=== PATIENT | male | born 2000 | race African-American/Black ===

== ENCOUNTER 2021-05-25 14:17 | Emergency (ER) | payer SELFPAY ==
[2021-05-25 14:41] LABS: Urine Blood Negative (Negative); Urine Glucose Negative (Negative); Urine Protein Negative (Negative); Urine pH 6.5 (5.0-7.0)
[2021-05-25 15:01] LABS: Urine Bacteria <20 /HPF (NONE SEEN); Urine Mucus LIGHT /HPF (NONE SEEN); Urine RBC <5 /HPF (NONE SEEN)
--- NOTE | 2021-05-25 15:06 | EDPHYS ---
Physician Documentation [facility] Name: Tramaine Mckeon Jr Age: 20 yrs Sex: Male : 2000 Arrival Date: 05/25/2021 Time: 14:21 Bed 11 Private MD: ED Physician Moose Arce HPI: 05/25 14:46 This 20 yrs old Black Male presents to ER via Ambulatory with complaints of STD kb Exposure. 14:46 The patient presents with a known STD exposure, with a history of engaging in sex with kb a single partner, did not use protection, the patient has no apparent symptoms. Onset: The symptoms/episode began/occurred today. Modifying factors: The symptoms are alleviated by nothing, the symptoms are aggravated by nothing. Associated signs and symptoms: The patient has no apparent associated signs or symptoms. Severity of symptoms: At their worst the symptoms were very mild, in the emergency department the symptoms are unchanged. The patient has not experienced similar symptoms in the past. The patient has not recently seen a physician. Pt states he had unprotected sex and the partner just tested positive for trichomoniasis. . Historical: - Allergies: 14:32 PENICILLINS; ll1 - PMHx: 14:32 Asthma; ll1 - PSHx: 14:32 None; ll1 - Immunization history:: Client reports having NOT received the Covid vaccine. - Social history:: Smoking status: Patient reports the use of cigarette tobacco products, cigars. ROS: 14:45 Constitutional: Negative for fever, chills, and weight loss. kb 14:45 All other systems are negative. Exam: 14:46 Constitutional: This is a well developed, well nourished patient who is awake, alert, kb and in no acute distress. Head/Face: Normocephalic, atraumatic. ENT: Moist Mucous membranes Respiratory: Respirations even and unlabored. No increased work of breathing. Talking in full sentences Abdomen/GI: Soft, non-tender. No distention Skin: Warm, dry with normal turgor. Normal color. MS/ Extremity: Pulses equal, no cyanosis. Neurovascular intact. Full, normal range of motion. Neuro: Awake and alert, GCS 15, oriented to person, place, time, and situation. Moves all extremities. Normal gait. Psych: Awake, alert, with orientation to person, place and time. Behavior, mood, and affect are within normal limits. Vital Signs: 14:30 BP 136 / 76; Pulse 73; Resp 15; Temp 98.7; Pulse Ox 99% ; Weight 72.57 kg; Height 5 ft. ll1 11 in. (180.34 cm); Pain 0/10; 15:09 BP 127 / 79; Pulse 64; Resp 16; Pulse Ox 98% ; Pain 0/10; ab2 14:30 Body Mass Index 22.31 (72.57 kg, 180.34 cm) ll1 MDM: 14:31 Patient medically screened. kb 14:45 Data reviewed: vital signs, nurses notes. Data interpreted: Pulse oximetry: on room air kb is 99 %. Interpretation: normal. Counseling: I had a detailed discussion with the patient and/or guardian regarding: the historical points, exam findings, and any diagnostic results supporting the discharge/admit diagnosis, lab results, the need for outpatient follow up, a family practitioner, to return to the emergency department if symptoms worsen or persist or if there are any questions or concerns that arise at home. 05/25 14:31 Order name: Urine Microscopic Only; Complete Time: 15:02 kb 05/25 14:41 Order name: Urine Dipstick-Ancillary; Complete Time: 14:47 EDMS 05/25 14:31 Order name: Urine Dipstick-Ancillary (obtain specimen); Complete Time: 14:41 kb 05/25 14:51 Order name: GC (Bhupendra/Chl) Probe URINE EDMS 05/25 15:04 Order name: Urine Culture EDMS Administered Medications: No medications were administered Disposition: 05/26 13:44 Co-signature as Attending Physician, Moose PATEL was immediately available on-site ms3 in the Emergency Department for consultation in the care of the patient.. Disposition Summary: 05/25/21 15:05 Discharge Ordered Location: Home kb Condition: Stable kb Diagnosis - Encounter for sexually transmitted infection testing after exposure kb - Person with feared health complaint in whom no diagnosis is made kb Followup: kb - With: Emergency Department - When: As needed - Reason: Worsening of condition Followup: kb - With: Private Physician - When: 2 - 3 days - Reason: Recheck today's complaints, Continuance of care, Re-evaluation by your physician Discharge Instructions: - Discharge Summary Sheet kb - Preventing Sexually Transmitted Infections, Adult kb Forms: - Medication Reconciliation Form kb - Thank You Letter kb - Antibiotic Education kb - Prescription Opioid Use kb Signatures: Dispatcher [employer] Chanel Rebolledo, TANKROOM WORKER-C [facility], RN RN ll1 Moose Arce DO DO ms3
--- NOTE | 2021-05-25 15:06 | ER ---
Nurse's Notes [facility] Name: Tramaine Mckeon Jr Age: 20 yrs Sex: Male : 2000 Arrival Date: 05/25/2021 Time: 14:21 Bed 11 Private MD: Diagnosis: Encounter for sexually transmitted infection testing after exposure;Person with feared health complaint in whom no diagnosis is made Presentation: 05/25 14:30 Chief complaint: Patient states: Exposed to trichomonas. No symptoms. Coronavirus ll1 screen: Vaccine status: Patient reports being unvaccinated. Client denies travel out of the [place] in the last 14 days. At this time, the client does not indicate any symptoms associated with coronavirus-19. Ebola Screen: Patient denies travel to an Ebola-affected area in the 21 days before illness onset. Initial Sepsis Screen: Does the patient meet any 2 criteria? No. Patient's initial sepsis screen is negative. Does the patient have a suspected source of infection? No. Patient's initial sepsis screen is negative. Risk Assessment: Do you want to hurt yourself or someone else? Patient reports no desire to harm self or others. Onset of symptoms is unknown. 14:30 Method Of Arrival: Ambulatory ll1 14:30 Acuity: CHANEL 4 ll1 Historical: - Allergies: 14:32 PENICILLINS; ll1 - PMHx: 14:32 Asthma; ll1 - PSHx: 14:32 None; ll1 - Immunization history:: Client reports having NOT received the Covid vaccine. - Social history:: Smoking status: Patient reports the use of cigarette tobacco products, cigars. Screenin:42 Abuse screen: Denies threats or abuse. Denies injuries from another. Nutritional ab2 screening: No deficits noted. Tuberculosis screening: No symptoms or risk factors identified. Fall Risk None identified. Assessment: 14:41 General: Appears in no apparent distress. comfortable, Behavior is calm, cooperative, ab2 appropriate for age. Neuro: Level of Consciousness is awake, alert, obeys commands, Oriented to person, place, time, situation, Appropriate for age Cashier Assistant are equal bilaterally Moves all extremities. Gait is steady. 14:42 Pain: Denies pain. Cardiovascular: No deficits noted. Denies chest pain, shortness of ab2 breath, Heart tones S1 S2 present. Respiratory: No deficits noted. Airway is patent Respiratory effort is even, unlabored, Respiratory pattern is regular, symmetrical. GI: No deficits noted. No signs and/or symptoms were reported involving the gastrointestinal system. : Pt was exposed to STD. EENT: No deficits noted. No signs and/or symptoms were reported regarding the EENT system. Derm: No deficits noted. No signs and/or symptoms reported regarding the dermatologic system. Skin is intact, Skin is pink, warm \T\ dry. Musculoskeletal: No deficits noted. No signs and/or symptoms reported regarding the musculoskeletal system. Vital Signs: 14:30 BP 136 / 76; Pulse 73; Resp 15; Temp 98.7; Pulse Ox 99% ; Weight 72.57 kg; Height 5 ft. ll1 11 in. (180.34 cm); Pain 0/10; 15:09 BP 127 / 79; Pulse 64; Resp 16; Pulse Ox 98% ; Pain 0/10; ab2 14:30 Body Mass Index 22.31 (72.57 kg, 180.34 cm) ll1 ED Course: 14:21 Patient arrived in ED. rg4 14:27 [facility]el Miller [facility]C [facility] kb 14:27 Moose Arce DO is Attending Physician. kb 14:32 Triage completed. ll1 14:32 Arm band placed on Patient placed in an exam room, on a stretcher. ll1 14:34 Biju Tan is Primary Nurse. ab2 14:41 Urine Microscopic Only Sent. ab2 14:43 Patient has correct armband on for positive identification. Bed in low position. Call ab2 light in reach. Side rails up X2. 14:43 No provider procedures requiring assistance completed. ab2 15:09 Patient did not have IV access during this emergency room visit. ab2 Administered Medications: No medications were administered Outcome: 15:05 Discharge ordered by . kb 15:09 Discharged to home ambulatory. ab2 15:09 Condition: good 15:09 Discharge instructions given to patient, Instructed on discharge instructions, follow up and referral plans. Demonstrated understanding of instructions, follow-up care. 15:09 Patient left the ED. ab2 Signatures: Chanel Miller FNP-C FNP-Rianna Slaughter rg4 Manoj Merida RN RN ll1 Biju Tan ab2
[2021-05-25 15:14] VITALS: TEMP 98.7
[2021-05-25 15:16] VITALS: BP 127/79; O2SAT 98
[2021-05-28 18:51] LABS: C.trachomatis RNA,TMA Not Detected (Not Detected)
== END 2021-05-25 15:09 | disposition home or self-care (01) ==
LOC: ER 14:17
DX: Z71.1 Person with feared health complaint in whom no diagnosis is made (principal); F17.290 Nicotine dependence, other tobacco product, uncomplicated; Z88.0 Allergy status to penicillin
CPT/HCPCS: 81003; 81015; 87086; 87088; 87490; 87590; 99283

== ENCOUNTER 2021-06-02 05:28 | Emergency (ER) | payer SELFPAY ==
[2021-06-02] MEDS ORDERED: IBUPROFEN 200 MG TAB PO ONE (05:57)
[2021-06-02] MEDS ORDERED: NA CHLORIDE 0.9% 1,000 ML ONE (05:58)
[2021-06-02] MEDS ORDERED: AZITHROMYCIN 250 MG TAB ONE (05:58)
[2021-06-02 06:19] LABS: Absolute Lymphocytes (CBC) 0.9 K/uL (0.7-4.9); Hematocrit 44.4 % (39.6-49.0); Lymphocytes % 19.6 % (15.3-44.8); MPV 8.6 fL (7.6-11.3); RBC Red Blood Cell Count 5.16 M/uL (4.33-5.43)
[2021-06-02 06:47] LABS: ALT/SGPT 34 U/L (12-78); AST/SGOT 20 U/L (15-37); Albumin 4.1 g/dL (3.4-5.0); Alkaline Phosphatase 59 U/L (45-117); BUN Blood Urea Nitrogen 9 mg/dL (7-18); Bicarbonate 29 mmol/L (21-32); Bilirubin Total 0.7 mg/dL (0.2-1.0); Glucose Level 97 mg/dL (74-106); Potassium 3.2 mmol/L (3.5-5.1); Protein, Total 7.8 g/dL (6.4-8.2); Sodium Level 138 mmol/L (136-145)
[2021-06-02] MEDS ORDERED: POTASSIUM 25 MEQ EFFERV TAB ONE (07:16)
--- NOTE | 2021-06-02 07:20 | RAD REPORT ---
EXAM DESCRIPTION: RAD - Chest Pa And Lat (2 Views) - 06/02/2021 5:58 am CLINICAL HISTORY: COUGH COMPARISON: No comparisons FINDINGS: Lines: None. Lungs: No evidence of edema or pneumonia. Pleural: No significant pleural effusions or pneumothorax. Cardiac: The heart size is within normal limits. Bones: No acute fractures. Other: IMPRESSION: No acute cardiopulmonary disease.
[2021-06-02 07:26] LABS: SARS-COV-2 RT PCR NEGATIVE (NEGATIVE)
--- NOTE | 2021-06-02 07:31 | EDPHYS ---
Physician Documentation [facility] Name: Tramaine Mckeon Jr Age: 20 yrs Sex: Male : 2000 Arrival Date: 06/02/2021 Time: 05:29 Bed 17 Private MD: ED Physician Sean Dominique HPI: 06/02 05:42 This 20 yrs old Black Male presents to ER via Unassigned with complaints of Cough, malia Fever, Congestion, Headache. 05:42 The patient or guardian reports cough, described as mild, difficulty breathing. Onset: malia The symptoms/episode began/occurred 2 day(s) ago. Severity of symptoms: At their worst the symptoms were mild, in the emergency department the symptoms are unchanged. Associated signs and symptoms: The patient has no apparent associated signs or symptoms. The patient has not experienced similar symptoms in the past. Historical: - Allergies: 05:48 PENICILLINS; bb - Home Meds: 05:48 None [Active]; bb - PMHx: 05:48 Asthma; bb - PSHx: 05:48 knee surgery; bb - Immunization history:: Client reports having NOT received the Covid vaccine. - Social history:: Smoking status: Patient reports the use of cigarette tobacco products, cigars. - Family history:: pertinent for not pertinent. ROS: 05:43 Eyes: Negative for injury, pain, redness, and discharge, ENT: Negative for injury, malia pain, and discharge, Neck: Negative for injury, pain, and swelling, Cardiovascular: Negative for chest pain, palpitations, and edema, Abdomen/GI: Negative for abdominal pain, nausea, vomiting, diarrhea, and constipation, Back: Negative for injury and pain, : Negative for injury, bleeding, discharge, and swelling, MS/Extremity: Negative for injury and deformity, Skin: Negative for injury, rash, and discoloration, Neuro: Negative for headache, weakness, numbness, tingling, and seizure, Psych: Negative for depression, anxiety, suicide ideation, homicidal ideation, and hallucinations, Allergy/Immunology: Negative for hives, rash, and allergies, Endocrine: Negative for neck swelling, polydipsia, polyuria, polyphagia, and marked weight changes, Hematologic/Lymphatic: Negative for swollen nodes, abnormal bleeding, and unusual bruising. 05:43 Constitutional: Positive for fatigue. 05:43 Respiratory: Positive for cough. Exam: 05:43 Head/Face: Normocephalic, atraumatic. Eyes: Pupils equal round and reactive to light, malia extra-ocular motions intact. Lids and lashes normal. Conjunctiva and sclera are non-icteric and not injected. Cornea within normal limits. Periorbital areas with no swelling, redness, or edema. ENT: Nares patent. No nasal discharge, no septal abnormalities noted. Tympanic membranes are normal and external auditory canals are clear. Oropharynx with no redness, swelling, or masses, exudates, or evidence of obstruction, uvula midline. Mucous membranes moist. Neck: Trachea midline, no thyromegaly or masses palpated, and no cervical lymphadenopathy. Supple, full range of motion without nuchal rigidity, or vertebral point tenderness. No Meningismus. Chest/axilla: Normal chest wall appearance and motion. Nontender with no deformity. No lesions are appreciated. Cardiovascular: Regular rate and rhythm with a normal S1 and S2. No gallops, murmurs, or rubs. Normal PMI, no JVD. No pulse deficits. Respiratory: Lungs have equal breath sounds bilaterally, clear to auscultation and percussion. No rales, rhonchi or wheezes noted. No increased work of breathing, no retractions or nasal flaring. Abdomen/GI: Soft, non-tender, with normal bowel sounds. No distension or tympany. No guarding or rebound. No evidence of tenderness throughout. Back: No spinal tenderness. No costovertebral tenderness. Full range of motion. Male : Normal genitalia with no discharge or lesions. Skin: Warm, dry with normal turgor. Normal color with no rashes, no lesions, and no evidence of cellulitis. MS/ Extremity: Pulses equal, no cyanosis. Neurovascular intact. Full, normal range of motion. Neuro: Awake and alert, GCS 15, oriented to person, place, time, and situation. Cranial nerves II-XII grossly intact. Motor strength 5/5 in all extremities. Sensory grossly intact. Cerebellar exam normal. Normal gait. Psych: Awake, alert, with orientation to person, place and time. Behavior, mood, and affect are within normal limits. 05:43 Constitutional: The patient appears well developed, febrile. Vital Signs: 05:46 BP 133 / 94; Pulse 72; Resp 16 S; Temp 98.4(O); Pulse Ox 100% on R/A; Weight 72.57 kg bb (R); Height 5 ft. 11 in. (180.34 cm) (R); Pain 10/10; 07:00 BP 123 / 92; Pulse 75; Resp 16; Temp 98.5; Pulse Ox 99% ; bp 05:46 Body Mass Index 22.32 (72.57 kg, 180.34 cm) MDM: 05:44 Differential diagnosis: viral Infection, bacterial infection, URI, bronchitis, malia pneumonia UTI. Differential Diagnosis: Bronchitis Influenza Upper Respiratory Infection Sinusitis Pharyngitis. Data reviewed: vital signs, nurses notes, lab test result(s), radiologic studies, plain films. Data interpreted: monitoring manager: rate is 89 beats/min, rhythm is regular, Pulse oximetry: on room air is 96 %. Test interpretation: by ED physician or midlevel provider: plain radiologic studies. Counseling: I had a detailed discussion with the patient and/or guardian regarding: the historical points, exam findings, and any diagnostic results supporting the discharge/admit diagnosis, lab results, radiology results, the need for outpatient follow up, for definitive care, a family practitioner. 05:47 Patient medically screened. [facility] 06/02 05:42 Order name: CBC with Diff; Complete Time: 06:43 [facility] 06/02 05:42 Order name: Comprehensive Metabolic Panel; Complete Time: 06:55 [facility] 06/02 05:42 Order name: Chest Pa And Lat (2 Views) XRAY; Complete Time: 07:29 [facility] 06/02 05:42 Order name: COVID-19/FLU A+B (Document "Date of Onset" if Symptomatic); Complete Time: 07:06/02 06:56 Order name: PO challenge: juice; Complete Time: 07:18 [facility] Administered Medications: 05:55 Drug: Zithromax (azithromycin) 500 mg Route: PO; bb 07:18 Follow up: Response: No adverse reaction bp 05:55 Drug: Motrin (ibuprofen) 600 mg Route: PO; bb 07:18 Follow up: Response: No adverse reaction bp 06:02 Drug: NS 0.9% 1000 ml Route: IV; Rate: 1 bolus; Site: right antecubital; bb 07:18 Follow up: IV Status: Completed infusion; IV Intake: 1000ml bp 07:10 Drug: Potassium Effervescent Tablet 25 mEq Route: PO; bp 08:00 Follow up: Response: No adverse reaction bp 07:45 Drug: Tamiflu (oseltamivir) 75 mg Route: PO; bp 08:01 Follow up: Response: No adverse reaction bp Disposition Summary: 06/02/21 07:30 Discharge Ordered Location: Home [facility] Problem: new malia Symptoms: have improved malia Condition: Stable malia Diagnosis - Fever, unspecified malia - Acute upper respiratory infection, unspecified malia - Hypokalemia malia - Influenza due to identified novel influenza A virus malia Followup: malia - With: Private Physician - When: 2 - 3 days - Reason: Recheck today's complaints, Continuance of care, Re-evaluation by your physician Discharge Instructions: - Discharge Summary Sheet [facility] - Potassium Content of Foods malia - Fever, Adult malia - Upper Respiratory Infection, Adult malia - Cool Mist Vaporizer malia - Upper Respiratory Infection, Adult, Nutn-ag-Iqsm malia - Cough, Adult malia - Hypokalemia malia - Influenza, Adult, Wfkw-ft-Lybd [facility] Forms: - Medication Reconciliation Form [facility] - Thank You Letter [facility] - Antibiotic Education malia - Prescription Opioid Use malia - Work release form ss - Family Work Release ss Prescriptions: - Zithromax Z-Ez 250 mg Oral Tablet - take 1 tablet by ORAL route as directed for 5 days Day 1 - take two (2) tablets [facility] one time. Day 2, 3, 4 , 5 take one (1) tablet once daily.; 6 tablet; Refills: 0, Product Selection Permitted - Tamiflu 75 mg Oral Capsule - take 1 tablet by ORAL route every 12 hours for 5 days; 10 tablet; Refills: 0, [facility] Product Selection Permitted - Bromfed DM 2-30-10 mg/5 mL Oral syrup - take 10 milliliter by ORAL route every 6 hours; 160 milliliter; Refills: 0, [facility] Product Selection Permitted Signatures: Dispatcher [employer] Sean Lawson MD MD cha Ballard, Brenda, RN RN Marty Coles RN RN bp
--- NOTE | 2021-06-02 07:31 | ER ---
[facility] Name: Tramaine Mckeon Jr Age: 20 yrs Sex: Male : 2000 Arrival Date: 06/02/2021 Time: 05:29 Bed 17 Private MD: Diagnosis: Fever, unspecified;Acute upper respiratory infection, unspecified;Hypokalemia;Influenza due to identified novel influenza A virus Presentation: 06/02 05:46 Chief complaint: Patient states: he has had body aches, congestion, chills, fever, bb headache x 2 days. Coronavirus screen: chills, congestion, fever, headache, Client presents with at least one sign or symptom that may indicate coronavirus-19. Standard/surgical mask placed on the client. Ebola Screen: No symptoms or risks identified at this time. Resp Distress? No respiratory distress is noted at this time. Initial Sepsis Screen: Does the patient meet any 2 criteria? No. Patient's initial sepsis screen is negative. Does the patient have a suspected source of infection? No. Patient's initial sepsis screen is negative. Risk Assessment: Do you want to hurt yourself or someone else? Patient reports no desire to harm self or others. Onset of symptoms was May 31, 2021. 05:46 Method Of Arrival: Ambulatory bb 05:46 Acuity: CHANEL 3 bb Historical: - Allergies: 05:48 PENICILLINS; bb - Home Meds: 05:48 None [Active]; bb - PMHx: 05:48 Asthma; bb - PSHx: 05:48 knee surgery; bb - Immunization history:: Client reports having NOT received the Covid vaccine. - Social history:: Smoking status: Patient reports the use of cigarette tobacco products, cigars. - Family history:: pertinent for not pertinent. Screenin:50 Abuse screen: Denies threats or abuse. Nutritional screening: No deficits noted. bb Tuberculosis screening: No symptoms or risk factors identified. Fall Risk None identified. Assessment: 05:50 General: Appears in no apparent distress. slender, Behavior is calm, cooperative. bb General: pt to X-ray via wheelchair accompanied by consultant technology. Pain: Complains of pain in generalized. Neuro: Level of Consciousness is awake, alert, obeys commands, Oriented to person, place, time, situation. Cardiovascular: Capillary refill < 3 seconds Patient's skin is warm and dry. Respiratory: Airway is patent Respiratory effort is even, unlabored, Respiratory pattern is regular, Breath sounds are clear bilaterally. GI: Abdomen is non-distended. Derm: Skin is dry, Skin is normal, Skin temperature is warm. Musculoskeletal: Circulation, motion, and sensation intact. 07:00 Reassessment: RECD REPORT FROM ELISABET ESTES. 20YO BM P/W N/V AND FEVER. DISPO PENDING. bp 08:02 Reassessment: PT D/C HOME AMBULATORY WITH FAMILY, DX WITH INFLUENZA A. bp Vital Signs: 05:46 BP 133 / 94; Pulse 72; Resp 16 S; Temp 98.4(O); Pulse Ox 100% on R/A; Weight 72.57 kg bb (R); Height 5 ft. 11 in. (180.34 cm) (R); Pain 10/10; 07:00 BP 123 / 92; Pulse 75; Resp 16; Temp 98.5; Pulse Ox 99% ; bp 05:46 Body Mass Index 22.32 (72.57 kg, 180.34 cm) bb ED Course: 05:29 Patient arrived in ED. ja2 05:40 Sean Dominique MD is Attending Physician. malia 05:46 Melany Rawls, RN is Primary Nurse. bb 05:48 Triage completed. bb 05:48 Arm band placed on Patient placed in an exam room, on a stretcher, on pulse oximetry. bb 05:50 Patient has correct armband on for positive identification. Placed in gown. Bed in low bb position. Call light in reach. Side rails up X 1. Pulse ox on. NIBP on. Warm blanket given. 06:00 Chest Pa And Lat (2 Views) XRAY In Process Unspecified. EDMS 06:00 Initial lab(s) drawn, by me, sent to lab. COVID swab sent to lab. Inserted saline lock: bb 20 gauge in right antecubital area, using aseptic technique. Blood collected. 07:08 Primary Nurse role handed off by Melany Rawls, RN bp 07:08 Marty Byrnes, RN is Primary Nurse. bp 08:04 No provider procedures requiring assistance completed. IV discontinued, intact, bp bleeding controlled, No redness/swelling at site. Pressure dressing applied. Administered Medications: 05:55 Drug: Zithromax (azithromycin) 500 mg Route: PO; bb 07:18 Follow up: Response: No adverse reaction bp 05:55 Drug: Motrin (ibuprofen) 600 mg Route: PO; bb 07:18 Follow up: Response: No adverse reaction bp 06:02 Drug: NS 0.9% 1000 ml Route: IV; Rate: 1 bolus; Site: right antecubital; bb 07:18 Follow up: IV Status: Completed infusion; IV Intake: 1000ml bp 07:10 Drug: Potassium Effervescent Tablet 25 mEq Route: PO; bp 08:00 Follow up: Response: No adverse reaction bp 07:45 Drug: Tamiflu (oseltamivir) 75 mg Route: PO; bp 08:01 Follow up: Response: No adverse reaction bp Intake: 07:18 IV: 1000ml; Total: 1000ml. bp Outcome: 07:30 Discharge ordered by . malia 08:04 Discharged to home ambulatory, with family. bp 08:04 Condition: stable 08:04 Discharge instructions given to patient, Instructed on discharge instructions, follow up and referral plans. medication usage, Demonstrated understanding of instructions, follow-up care, medications, Prescriptions given X 3. 08:04 Patient left the ED. bp Signatures: Dispatcher [employer] EDMS Sean Dominique MD MD cha Ballard, Brenda, RN RN Marty Coles, FRANKLYN RN Jenny Hendrickson
[2021-06-02] MEDS ORDERED: OSELTAMIVIR 75 MG CAP ONE (07:55)
[2021-06-02 15:21] VITALS: BP 123/92; TEMP 98.5; O2SAT 99
== END 2021-06-02 08:04 | disposition home or self-care (01) ==
LOC: ER 05:28
DX: J10.1 Influenza due to other identified influenza virus with other respiratory manifestations (principal); E87.6 Hypokalemia; F17.290 Nicotine dependence, other tobacco product, uncomplicated; Z88.0 Allergy status to penicillin; Z20.822 Contact with and (suspected) exposure to COVID-19
CPT/HCPCS: 0240U; 36415; 71046; 80053; 85025; 96360; 99284; J7030